=== PATIENT | female | born 1990 | race Caucasian/White ===

== ENCOUNTER → 2016-12-15 | Outpatient (CLI) | payer BC, OTHER ==
[~2016-12-15] MED LIST: PRENTAB26 PO
== END | disposition home or self-care (01) ==
LOC: C.PAPS 11:32
PROVIDERS: ATTEND Obstetrics & Gynecology
DX: Z01.419 Encounter for gynecological examination (general) (routine) without abnormal findings (principal)

== ENCOUNTER → 2018-01-02 | Outpatient (CLI) | payer BC | END | disposition home or self-care (01) | LOC: C.PAPS 08:03 | PROVIDERS: ATTEND Physician Assistant | DX: Z01.419 Encounter for gynecological examination (general) (routine) without abnormal findings (principal) ==

== ENCOUNTER 2019-12-30 12:47 | Inpatient (IN) ==
[2019-12-30] MEDS ORDERED: ACETAMINOPHEN 325 MG TAB PO PRN (13:04)
[2019-12-30] MEDS: OXYCODONE HCL IR 5 MG TAB (IMMEDIATE RELEASE) PO PRN ×3 (13:46→22:46)
[2019-12-30 13:55] LABS: Hematocrit (blood only) 39.4 % (37-47); Hemoglobin 13.3 g/dL (12.0-16.0); Mean Corpuscular Hemoglobin 31.1 pg (25-34); Mean Corpuscular Volume 92.3 fL (80-100); Mean Platelet Volume 10.1 fL (7.4-10.4); Platelet Count 365 K/uL (130-400); RDW Coefficient of Variation 13.2 % (11.5-14.5); RDW Standard Deviation 44.6 fL (36.4-46.3); Red Blood Count 4.27 M/uL (4.2-5.4)
[2019-12-30 14:07] LABS: Mean Corpuscular Hgb Conc 33.8 g/dL (32-36)
--- NOTE | 2019-12-30 15:16 | CT Scan Report ---
CT abd pelvis wo con CT DOSE: 1116.28 mGycm HISTORY: Abscess eval abscess: vulva/abd wall TECHNIQUE: Multiaxial CT images of the abdomen and pelvis were performed without contrast. A dose lo wering technique was utilized adhering to the principles of ALARA. COMPARISON STUDY: 12/28/2019 FINDINGS: Lung bases are clear. Liver spleen and pancreas are grossly unremarkable. Kidneys negative for hydronephrosis. The upper abdominal bowel pattern is nonobstructive. Evaluation of the pelvis again shows the inflammatory/cellulitis type process of the right anterior i nguinal region extending to the right perineum and bulbar region. Overall extent and severity of proc ess is stable. There is no evidence for a definitive collection or abscess at this time with the bulk of findings again most consistent with that of a cellulitis type pattern. There are several small reactive nodes which are unchanged from the prior exam. No evidence for drain able abscess collection. IMPRESSION: 1. Unchanged exam compared to the prior study. 2. Findings consistent with a right groin cellulitis extending to the right perineum and anterior vul eleanor region. 3. No evidence for drainable abscess or collection. 4. The diffuse cellulitis is unchanged in overall severity and extent by CT criteria. ACT 112: Negative or not required by law. The above report was generated using voice recognition software. It may contain grammatical, syntax or spelling errors. Electronically signed by: Johan More M.D. 12/30/2019 3:14 PM
[2019-12-30] MEDS ORDERED: PIPERACILL/TAZOBAC CONSULT ACTIVE PRN (15:35)
[2019-12-30] MEDS ORDERED: VANCOMYCIN CONSULT ACTIVE PRN ×2 (15:35)
--- NOTE | 2019-12-30 15:37 | History and Physical Report ---
DATE OF ADMISSION: 12/30/2019 REASON FOR ADMISSION: Vulvar cellulitis refractory to outpatient management. BRIEF HISTORY: Jeanne is a 29-year-old , who was sent as a direct admit for vulvar cellulitis refractory to outpatient management. The patient reports that she first began noticing vulvar discomfort and erythema starting about a week ago. The patient reports that this progressively worsened and became quite painful and was seen in the ED this past Monday. At that time she underwent a CT scan which showed cellulitis without any drainable fluid collection or emphysema and was sent home with Bactrim and Augmentin. The patient reports that in total she took 4 doses of each medication. She reports that the symptoms progressively worsened over the weekend and noted the development of 2-3 additional areas of cellulitis which developed on her abdomen and lateral right hip. She reports these areas are quite painful. She denies any fevers, chills or systemic symptoms of infection at present. PAST MEDICAL HISTORY: Unremarkable per patient report. PAST SURGICAL HISTORY: 1. History of LEEP. 2. History of lithotripsy. 3. History of colposcopy. FAMILY HISTORY: Remarkable for breast cancer. SOCIAL HISTORY: The patient denies tobacco or illicit drug use. PHYSICAL EXAMINATION: VITAL SIGNS: Blood pressure 135/87, pulse 101, respiratory rate 20, temperature 37.4. GENERAL: The patient is well appearing in no acute distress, alert and oriented x3. HEART: Showed regular rate and rhythm. LUNGS: Showed no labored breathing. ABDOMEN: Soft, nontender to deep palpation. On inspection of the abdominal wall there is noted to be 1 or 2 areas of distinct cellulitis with possible abscess for which borders were demarcated on exam. There was also noted to be an area of cellulitis on the right lateral hip which did appear to possibly extend into the right labial cellulitis; however, there is also possible distinct line of delineation between the 2 areas. EXTREMITIES: Lower extremities were otherwise unremarkable. GENITOURINARY: Right labial markedly erythematous extending just from the midline, encompassing the entire labia majora. The upper aspect of the labia majora to the mons showed significant induration without distinct fluctuance or abscess noted. The area was quite tender to palpation. The lateral borders of the cellulitis was demarcated on all areas to help document improvement. ASSESSMENT AND PLAN: Jeanne is a 29-year-old who presents with vulvar cellulitis which has progressed to involve abdominal and lateral hip. These do appear to be separate areas of cellulitis and questionable abscess in the abdominal area. The patient has been on Bactrim and Augmentin outpatient with worsening of symptoms since starting the antibiotics. I will order a CT scan to evaluate for any areas of abscess as this will change the recommended antibiotic course. Due to the progression and new areas noted and the rapid expansion broad spectrum antibiotics would likely be most beneficial, but we will await CT results to decide on antibiotic therapies. Will provide Tylenol, ibuprofen and oxycodone for pain control. CBC is currently pending and will trend daily. Addendum: CT negative for abscess. Discussed case with clinical pharmacist for best antibiotic regimen. Recommended Vanc/Zosyn. MTDD
[2019-12-30] MEDS ORDERED: PIPERACILLIN/TAZOBACTAM 4.5 GM in DEXTROSE 5% 100 ML IV STA (15:51)
[2019-12-30] MEDS ORDERED: VANCOMYCIN HCL 1,750 MG in SODIUM CHLORIDE 0.9% 500 ML IV STA (15:54)
--- NOTE | 2019-12-30 16:24 | Pharmacy Report ---
Pharmacy Abx Initial Consult - Date of Service December 30, 2019 - Pharmacy Dosing Scope Date of Consult: 12/30/2019 Consultation requested by: Dr. Meadows Pharmacy is consulted to initiate Vancomycin + Zosyn IV dosing therapy, order appropriate labs and adjust drug dose/frequency. - Subjective The patient is a 29 year old F admitted on 12/30/19 12:47. - Objective Height: 5 ft 4 in Weight: 93.44 kg Vital Signs (Past 12hrs): Vital Signs Temp Pulse Resp BP Pulse Ox 12/30/19 13:12 37.4 C 101 H 20 135/87 100 Lab Results (24hrs): Laboratory Tests (24 Hours) 12/30/19 13:28 WBC 17.40 H Laboratory Tests 12/28/19 18:13 Creatinine 0.79 Est Cr Clr Drug Dosing 114.6 Micro Results: 12/30/19 14:25 Gram Stain - Pending Vulva Deep Wound Culture - Pending - Risk Factors for Resistance * Antimicrobial use within the last 90 days: * Augmentin + Bactrim DS - Assessment & Plan Assessment 29 year old F admitted today secondary to vulvar cellulitis * Pt present to ED on 12/28/2019 w/ complaints of "R labial redness, swelling and pain that had been going on for the last 5 days" * Pain is sharp and stabbing in nature and radiates into the R side of her abdomen; does report feeling feverish * Pt was discharged with Augmentin + Bactrim DS * Pt returns to ED today for worsening symptoms * WBCs 20725, afebrile, Renal fxn labs pending * CT A&P shows "R groin cellulitis extending to R perineum and anterior vulvar region...no evidence of abscess or fluid collection" * Spoke w/ Dr. Meadows and decided on broad spectrum antibiotics for now until cultures return Plan IV Vancomycin and Zosyn for treatment of Vulvar Cellulitis Vancomycin IV * Patient meets criteria for vancomycin AUC dosing nomogram * AUC/NANCY is the preferred PK/PD target for vancomycin * Target AUC/NANCY = 400-600 * AUC guided dosing is effective and associated with decreased risk of nephrotoxicity Piperacillin/tazobactam * 4.5 g bolus administered over 30 minutes, then 3.375 g IV extended infusion every 8 hours for CrCl greater than 20 mL/min Pharmacy will continue to follow and will adjust dose/frequency as necessary. Thank you.
[2019-12-30] MEDS: IBUPROFEN 600 MG TAB PO PRN ×2 (16:31→22:47)
[2019-12-30 16:50] LABS: Est GFR (African American) 63.9; Est GFR (Non-African American) 55.1
[2019-12-30] MEDS: PIPERACILLIN/TAZOBACTAM 3.375 GM in DEXTROSE 5% 100 ML IV SCH (22:03)
[2019-12-31] MEDS ORDERED: VANCOMYCIN HCL 1,500 MG in SODIUM CHLORIDE 0.9% 500 ML IV SCH ×2 (05:00)
[2019-12-31 06:11] LABS: Mean Corpuscular Hgb Conc 33.3 g/dL (32-36); Mean Platelet Volume 10.2 fL (7.4-10.4); Platelet Count 344 K/uL (130-400); RDW Coefficient of Variation 13.2 % (11.5-14.5); RDW Standard Deviation 44.8 fL (36.4-46.3); Red Blood Count 3.55 M/uL (4.2-5.4); White Blood Count 10.28 K/uL (4.8-10.8)
[2019-12-31 06:49] LABS: Creatinine Clr Calc Pharmacy 122.1 ml/min; Est GFR (African American) 125.1
[2019-12-31] MEDS: PIPERACILLIN/TAZOBACTAM 3.375 GM in DEXTROSE 5% 100 ML IV SCH ×3 (06:54→22:13)
[2019-12-31] MEDS: IBUPROFEN 600 MG TAB PO PRN ×2 (07:28→17:06)
[2019-12-31] MEDS: OXYCODONE HCL IR 5 MG TAB (IMMEDIATE RELEASE) PO PRN ×2 (07:28→17:07)
--- NOTE | 2019-12-31 08:47 | Gynecologic Progress Note ---
Date of Service December 31, 2019 Assessment & Plan (1) Cellulitis of labia: Jeanne is a 29-year-old who presents with vulvar cellulitis which has progressed to involve abdominal and lateral hip. These do appear to be separate areas of cellulitis. The patient has been on Bactrim and Augmentin outpatient with worsening of symptoms since starting the antibiotics. WBC significantly improved. Symptoms mildly improved. No change in effected areas of cellulitis. Continue Vanc/Zosyn. Antibiotic day 1 Admission and Anticipated Discharge Date Admission Date: December 30, 2019 Subjective 29yo admitted for vulvar/abd cellulitis refractory to outpatient management. No acute events. Reports that pain is mildly improved. No fevers/ chills/ night sweats. Currently on second dose of antibiotics Physical Exam Constitutional: WD/WN, vitals as above + malnourished Gastrointestinal (Abdomen): 2 erythematous bites in her right lower abdomen and in her right leg connects to her body Genitourinary: Area of demarcated cellulitis without noticeable change. Results & Data ([facility]) Vital Signs (Past 12 Hours) Vital Signs Temp Pulse Resp BP 12/31/19 04:05 37.1 C 69 18 116/80 12/30/19 23:35 36.6 C 73 16 131/83 PG Care Time/CCT Total # of Minutes Spent Total Time Spent with Patient: Total time spent is greater than 50% in coordination of care (as documented) at patient's floor/unit and/or counseling patient: Coding Level of Care Code 30250 Subseq Hosp Care Lvl 2 Diagnoses Cellulitis of labia N76.2
[2019-12-31] MEDS: VANCOMYCIN HCL 1,500 MG in SODIUM CHLORIDE 0.9% 500 ML IV SCH ×2 (13:40→22:13)
[2019-12-31] MEDS ORDERED: VANCOMYCIN TROUGH SCH (15:30)
[2020-01-01] MEDS: IBUPROFEN 600 MG TAB PO PRN ×3 (02:30→21:06)
[2020-01-01] MEDS ORDERED: VANCOMYCIN TROUGH SCH ×2 (04:30→05:30)
[2020-01-01] MEDS: OXYCODONE HCL IR 5 MG TAB (IMMEDIATE RELEASE) PO PRN ×3 (05:53→22:43)
[2020-01-01] MEDS: PIPERACILLIN/TAZOBACTAM 3.375 GM in DEXTROSE 5% 100 ML IV SCH ×3 (05:59→22:12)
[2020-01-01] MEDS: VANCOMYCIN HCL 1,500 MG in SODIUM CHLORIDE 0.9% 500 ML IV SCH ×2 (06:06→18:11)
[2020-01-01 06:37] LABS: Creatinine Clr Calc Pharmacy 130.9 ml/min; Est GFR (African American) 134.4
--- NOTE | 2020-01-01 08:04 | Gynecologic Progress Note ---
Date of Service January 01, 2020 Assessment & Plan (1) Cellulitis of labia: Significant labial and lower abdominal cellulitis. It is improving on broad spectrum antibiotics. Would recommend 24 more hours of treatment as still redness and patient still uncomfortable. CBC this am Admission and Anticipated Discharge Date Admission Date: December 30, 2019 Subjective feels much better after 24+ hours on broad spectrum antibiotics. Still having some pain in the groin. Had drainage from one of the areas last night. Does not feel feverish Physical Exam Constitutional: WD/WN, vitals as above Genitourinary: normal external appearance (There are demarcations where redness was and it has significantly reduced ) Results & Data ([facility]) Vital Signs (Past 12 Hours) Vital Signs Temp Pulse Resp BP Pulse Ox 01/01/20 07:20 98.2 F 81 16 128/83 99 01/01/20 05:15 98.4 F 80 18 135/86 01/01/20 00:30 98.4 F 76 18 122/80 PG Care Time/CCT Total # of Minutes Spent Total Time Spent with Patient: Total time spent is greater than 50% in coordination of care (as documented) at patient's floor/unit and/or counseling patient: Coding Level of Care Code 10303 Subseq Hosp Care Lvl 2 Diagnoses Cellulitis of labia N76.2
[2020-01-01 08:31] LABS: Basophils # (auto) 0.03 K/uL (0-0.2); Basophils % (auto) 0.3 %; Eosinophils # (auto) 0.11 K/uL (0-0.5); Eosinophils % (auto) 1.1 %; Hematocrit (blood only) 36.1 % (37-47); Immature Granulocytes # (auto) 0.02 K/uL (0.00-0.02); Immature Granulocytes % (auto) 0.2 %; Lymphocytes # (auto) 2.15 K/uL (1.2-3.4); Lymphocytes % (auto) 21.2 %; Mean Corpuscular Hemoglobin 30.8 pg (25-34); Mean Corpuscular Hgb Conc 33.2 g/dL (32-36); Mean Corpuscular Volume 92.8 fL (80-100); Mean Platelet Volume 10.2 fL (7.4-10.4); Monocytes # (auto) 0.67 K/uL (0.11-0.59); Monocytes % (auto) 6.6 %; Neutrophils # (auto) 7.16 K/uL (1.4-6.5); Neutrophils % (auto) 70.6 %; Platelet Count 430 K/uL (130-400); RDW Coefficient of Variation 13.1 % (11.5-14.5); RDW Standard Deviation 43.9 fL (36.4-46.3); Red Blood Count 3.89 M/uL (4.2-5.4); White Blood Count 10.14 K/uL (4.8-10.8)
--- NOTE | 2020-01-01 08:48 | Pharmacy Report ---
Pharmacy Abx Dose Short Note - Date of Service January 01, 2020 - Assessment & Plan Assessment 29 year old F receiving vancomycin/zosyn for cellulitis Day # 3 of antimicrobial therapy. Plan Vancomycin * Trough level came back on upper end of range, but therapeutic at ~20 mcg/ml * Will decrease to vancomycin 1500 mg iv q 12 hrs as likely patient will accumulate medication d/t BMI>/35 kg/m2 * Per provider notes, area still red and noted some drainage last evening. Would like to continue broad spectrum antibiotics at least another 24 hrs. Would recommend deescalating tomorrow based upon culture results Zosyn * 3.375 gm iv q 8 hrs - CrCl>20 / borderline for dosage increase due to BMI - continue same dosing for now as likely will deescalate soon Pharmacy will continue to follow and will adjust dose/frequency as necessary. Thank you.
[2020-01-02] MEDS: PIPERACILLIN/TAZOBACTAM 3.375 GM in DEXTROSE 5% 100 ML IV SCH (06:08)
[2020-01-02] MEDS: VANCOMYCIN HCL 1,500 MG in SODIUM CHLORIDE 0.9% 500 ML IV SCH (06:09)
[2020-01-02 08:01] LABS: Creatinine Clr Calc Pharmacy 143.4 ml/min; Est GFR (African American) 138.5; Est GFR (Non-African American) 119.5
[2020-01-02] MEDS: IBUPROFEN 600 MG TAB PO PRN ×2 (08:20→16:38)
--- NOTE | 2020-01-02 08:55 | Labor Progress Brief Note ---
Date of Service January 02, 2020 Subjective "Background" or constant pain is minimal, similar to what it has been within the past 24 hours. Not feeling hot / chilled. Feels that the redness continues to decrease. Notes new, intermittent, stabbing pain in her right labia that has been occurring randomly within the last day and is maybe increasing in frequency. Notes that the labia feels harder on the right than it did before. Assessment & Plan (1) Cellulitis of labia: Patient with clinical improvement in her original and quite impressive cellulitis. However with firm area that is well defined, perhaps increasing in size, and could possibly represent abscess. Will get US this morning to r/o drainable collection. If no abscess, WBC stable and remains afebrile, could be discharged to home on PO antibiotic regimen. Choice of agent to be reviewed with pharmacy - patient failed bactrim and augmentin, did well on vanco/zosyn. Perhaps clindamycin +/- secondary agent. Dr. Saeed taking over coverage of the patient this morning and made aware of the above. Physical Exam Physical Exam: Examined with Ashtyn Paulino RN for her input on comparing to mel or exams. Area of demarcation around labia / leg is essentially without erythema. The lesions on the abdomen, however, are still erythematous to about 1" around each lesion. It is unclear to me what these lesions may be - boils, bites, etc. They are punctate and occur singly and in pairs about 1cm apart. The right labia majora has a very firm area, well defined, able to be "grasped" separate from the surrounding soft tissue, and not fluctuant. Palpation of this reproduces the sharp pains per patient. This area extends with a "tail" up into the R mons, pointing towards but not reaching the ASIS. This "tail" is new per RN, and the firmness of the tissue is increased per RN. No drainage or pointing is appreciated anywhere. Results & Data Vital Signs (Past 12 Hours) Vital Signs Temp Pulse Resp BP 01/02/20 04:00 98.1 F 72 18 130/66 01/02/20 00:00 98.1 F 77 18 136/70 Coding Level of Care Code 43968 Subseq Hosp Care Lvl 2 Diagnoses Cellulitis of labia N76.2
--- NOTE | 2020-01-02 09:48 | Ultrasound Report ---
EXAMINATION: PELVIC ULTRASOUND CLINICAL HISTORY: Pain. Labial cellulitis. COMPARISON STUDY: Noncontrast CT scan dated 12/30/2019 FINDINGS: There is a right labial edema. There is a complex right labial collection measuring 14 mm which has a linear tract extending to the right inguinal region. The findings are consistent with an abscess. IMPRESSION: Complex right labial fluid collection which demonstrates a linear tract extending to the right inguinal region. The findings are consistent with an abscess. ACT 112: Negative or not required by law. Electronically signed by: Kristian Mcleod M.D. 01/02/2020 9:47 AM
[2020-01-02] MEDS: OXYCODONE HCL IR 5 MG TAB (IMMEDIATE RELEASE) PO PRN (10:53)
[2020-01-02] MEDS ORDERED: LIDOCAINE/EPINEPHRINE 1% 20 ML VIAL INFIL ONE (11:15)
[2020-01-02] MEDS ORDERED: DOXYCYCLINE HYCLATE 100 MG CAP PO SCH (11:30)
[2020-01-02] MEDS ORDERED: ETHYL CHLORIDE AER SPR 100 ML CAN EXT ONE (11:30)
[2020-01-02] MEDS ORDERED: DOXYCYCLINE HOME PACK 100 MG/CAP PO ONE (13:59)
--- NOTE | 2020-01-03 03:01 | Operative Report (OR) ---
DATE OF OPERATION: 01/02/2020 SURGEON: Latoya Saeed MD PREOPERATIVE DIAGNOSIS: Right vulvar and groin abscess. POSTOPERATIVE DIAGNOSIS: Right vulvar and groin abscess. PROCEDURE: Incision and drainage of groin and vulvar abscess. HISTORY: The patient is a 29-year-old white female who had presented initially to the office with evidence of a vulvar cellulitis. She was initially started on oral antibiotics by the Emergency Room; however, on followup the cellulitis appeared to be spreading. She was admitted for IV antibiotics and after 2 days on the IV antibiotics, her white count had returned to normal and she remained afebrile. However, it was noted that she had what appeared to be a collection in the right groin area amidst the area affected by cellulitis. Ultrasound revealed the presence of a complex right collection measuring approximately 14 mm with a tract that extended to the right inguinal area. The patient was agreeable to a bedside incision and drainage of this abscess and the proper consents were signed and all her questions were answered to her satisfaction. ANESTHETIC: Local 1% lidocaine with epinephrine. DESCRIPTION OF PROCEDURE AND FINDINGS: There was a palpable tender mass in the right groin area with a fluctuant area in the area of the mons connecting to the right groin area. The area was prepped and draped. Approximately 4 mL of 1% lidocaine with epinephrine was injected into the incision site. A scalpel was used to enter the abscess. Approximately 10 mL of purulent material was expressed from the abscess. A #8 feeding tube was used with normal saline to irrigate the abscess cavity.. There did not appear to be any other loculations present. The abscess area measured approximately 8 cm in length. After the abscess cavity was irrigated, a Word catheter was placed in the stab incision and the Word catheter balloon was insufflated with approximately 1 mL of air. The patient tolerated the procedure well. Cultures were done for both aerobic and anaerobic prior to placing the Word catheter. Hemostasis was excellent and the patient tolerated the procedure well. I attest to the content of the Intraoperative Record and any orders documented therein. Any exceptions are noted below. MTDD
--- NOTE | 2020-01-08 18:32 | Discharge Summary (DS) ---
PRINCIPAL DIAGNOSIS: Right vulvar and lower abdominal cellulitis. PRINCIPAL PROCEDURE: Incision and drainage of a groin abscess. HISTORY OF PRESENT ILLNESS: The patient is a 29-year-old white female who had presented initially to the office with evidence of vulvar cellulitis. She had been started on oral antibiotics by the Emergency Room prior to this followup visit and it appeared that the cellulitis was spreading. She was admitted for IV antibiotics. Her white count had returned to normal and she had remained afebrile. Initially, her cultures grew out Staph aureus. On the morning of 01/02/2020, she was noted to have what appeared to be a discrete mass in the right groin area. An ultrasound was done and showed a complex collection approximately 14 mm in size with a tract that extended to the right inguinal area. As a result of the possible abscess, a bedside incision and drainage was performed and approximately 10 mL of purulent material was expressed from the abscess site. This was also irrigated and a Word catheter was placed in the stab site. The patient felt better. The rest of her cellulitis symptoms had begun to resolve. The erythema was significantly better at that point and she was discharged on p.o. antibiotics. She is to take doxycycline 100 mg p.o. b.i.d. for an additional 7 days. She is to be seen in the office for a followup visit in the office on 01/06/2020. She is to call for temperature of 101 degrees or higher, increased redness or pain in the area of the cellulitis or if she has any other concerns.
== END 2020-01-02 18:40 | disposition home or self-care (01) | DRG 747 ==
LOC: 4S2 12:47